=== PATIENT | male | born 1970 | race Caucasian/White ===

== ENCOUNTER 2023-08-11 22:33 | Emergency (ER) | payer SELFPAY ==
[2023-08-11] MEDS ORDERED: Hydrochlorothiazide 25 MG TAB ONE (23:14)
== END 2023-08-11 23:43 | disposition home or self-care (01) ==
LOC: MADERS 22:33
DX: I10 Essential (primary) hypertension (principal); E11.9 Type 2 diabetes mellitus without complications; F17.210 Nicotine dependence, cigarettes, uncomplicated; Z79.4 Long term (current) use of insulin
CPT/HCPCS: 36416; 99283